=== PATIENT | male | born 1945 | race Caucasian/White ===

== ENCOUNTER 2022-02-08 12:12 | Emergency (ER) | payer MEDICARE, OTHER ==
[~2022-02-08] VITALS: Ht 170.2 cm; Wt 95.3 kg
[2022-02-08] MEDS ORDERED: ASPIRIN 81 MG TAB.CHEW PO ONE (13:30)
[2022-02-08] MEDS ORDERED: ASPIRIN 81 MG TAB.CHEW ONE (13:42)
[2022-02-08 13:47] LABS: HEMATOCRIT 44.2 % (36.7-47.1); MEAN CORPUSCULAR HEMOGLOBIN 27.4 uug (23.8-33.4); MEAN CORPUSCULAR VOLUME 82.4 fL (73.0-96.2); PLATELET COUNT (AUTO) 276 K/uL (152-348)
[2022-02-08 14:01] LABS: CARBON DIOXIDE 28 mmol/L (21-32); CHLORIDE 104 mmol/L (98-107); CREATININE 0.9 mg/dL (0.6-1.3); GLUCOSE 97 mg/dL (74-106); POTASSIUM 4.3 mmol/L (3.5-5.1); UREA NITROGEN, BLOOD 9 mg/dL (7-18)
[2022-02-08 14:14] LABS: ALANINE AMINOTRANSFERASE 26 U/L (16-63); ALKALINE PHOSPHATASE 63 U/L (50-136); ASPARTATE AMINOTRANSFERASE 31 U/L (15-37); BILIRUBIN,DIRECT 0.2 mg/dL (0.0-0.2); BILIRUBIN,TOTAL 0.5 mg/dL (0.2-1.0); TOTAL PROTEIN, SERUM 6.5 g/dL (6.4-8.2)
--- NOTE | 2022-02-08 14:20 | NUR ---
Pt states "I have to go home". Pt was notified of pending labs/xray and was encouraged to stay until test results came back, etc.
--- NOTE | 2022-02-08 14:30 | NUR ---
Pt stated "I have to go home now" and walked out of the ER.
[2022-02-08] MEDS ORDERED: HEPARIN/D5W DRIP 500 ML IV PRN ×2 (15:30→16:45)
[2022-02-08] MEDS ORDERED: HEPARIN SODIUM,PORCINE 5,000 UNITS/ML VIAL ONE (16:25)
[2022-02-08] MEDS ORDERED: HEPARIN/D5W DRIP 500 ML ONE (16:25)
[2022-02-08] MEDS ORDERED: HEPARIN SODIUM,PORCINE 5,000 UNITS/ML VIAL IV ONE (16:30)
--- NOTE | 2022-02-08 16:45 | NUR ---
Contacted [facility]: "Silvia," rep. [phone]
--- NOTE | 2022-02-08 17:18 | NUR ---
Pre-booked [facility] for medic transfer to [facility] (Room TBD). ETA:
--- NOTE | 2022-02-08 18:31 | NUR ---
Pt accepted at [facility], Dr. Gutierrez. Pt going to room 259. [phone] for report.
--- NOTE | 2022-02-08 18:47 | NUR ---
Correction: Admiting MD will be Dimitrios Toney. Give report after 7PM to Vanesa.
--- NOTE | 2022-02-08 19:45 | NUR ---
[facility] has arrived.
--- NOTE | 2022-02-08 20:00 | NUR ---
Report given to KRISSY Alexis from [facility].
--- NOTE | 2022-02-08 20:15 | NUR ---
Patient's drip d/c as instructed by physician and will continue once patient arrives to [place].
--- NOTE | 2022-02-08 20:20 | NUR ---
[facility] left with patient. Patient a/o x4. NAD noted. Ambulatory with a steady gait.
== END 2022-02-08 14:44 | disposition left against medical advice (07) ==
LOC: ER 12:12
DX: I21.4 Non-ST elevation (NSTEMI) myocardial infarction (principal); N40.0 Benign prostatic hyperplasia without lower urinary tract symptoms; R05.9 Cough, unspecified; Z20.822 Contact with and (suspected) exposure to COVID-19
CPT/HCPCS: 99285; 96365; 71045; 96366; 87426; 80076; 80048; 83880; 85025; 85730; 84484 ×4; 36415; 93005 ×2; J1644 ×2; 90937; A4663